=== PATIENT | female | born 1985 | race African-American/Black ===

== ENCOUNTER 2016-12-12 11:33 | Emergency (ER) | payer OTHER ==
[2016-12-12 11:42] VITALS: BP 134/77; PULSE 62; TEMP 97.7; BMI 22.6
[2016-12-12] MEDS ORDERED: DIPHTH,PERTUSS(ACELL),TET 0.5 ML DISP.SYRIN IM ONE (12:05)
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
[2016-12-12 14:49] LABS: HIV 1 & 2 AB NEGATIVE; HIV 1 AGp24 NEGATIVE
== END 2016-12-12 12:51 | disposition home or self-care (01) ==
LOC: JERFT 11:33
PROC: 3E0234Z Introduction of Serum, Toxoid and Vaccine into Muscle, Percutaneous Approach (ICD-10-PCS; principal; 2016-12-12)
DX: S61.254A Open bite of right ring finger without damage to nail, initial encounter (principal); W50.3XXA Accidental bite by another person, initial encounter; Y93.F9 Activity, other caregiving; Y92.098 Other place in other non-institutional residence as the place of occurrence of the external cause; Y99.0 Civilian activity done for income or pay
CPT/HCPCS: 36415; 86707; 87350; 87389; 90471; 90715; 99281-25

== ENCOUNTER 2017-09-15 14:22 | Emergency (ER) | payer OTHER ==
[2017-09-15 14:32] VITALS: BP 132/81; PULSE 76; TEMP 99; BMI 25.8
--- NOTE | 2017-09-15 14:38 | PDOC ---
Rapid Medical Evaluation Chief Complaint: Vaginal Bleeding Time Seen by Provider: 09/15/17 14:30 Medical Evaluation: Allergies Allergy/AdvReac Type Severity Reaction Status Date / Time No Known Allergies Allergy Verified 12/12/16 11:42 09/15/17 14:31 Pt here with c/o: vag bleed and abd pain, pt went to [facility] today and was told fetus was 6 weeks although she states is 12 weeks by LMP. Pt unable to get an appt with [facility]. Here for 2nd opinion Pt on exam: vss pt ordered for: none pt to proceed to the ED Discharge Disposition - Diagnosis Vaginal bleeding in - Referrals Referrals: Sadiq Rios MD [Primary Care Provider] - - Patient Instructions - Post Discharge Activity
--- NOTE | 2017-09-15 16:28 | PDOC ---
History of Present Illness - General Chief Complaint: Vaginal Bleeding Stated Complaint: 12wks , abd pain Time Seen by Provider: 09/15/17 14:30 - History of Present Illness Initial Comments: 09/15/17 16:25 Ms. Wei is a 32 yo female with pmh of anxiety and depression who presents for evaluation after noticing some vaginal spotting and clots in the toilet this morning. She reports that she is 12 weeks by LMP and she presented to [facility] for evaluation this AM. At [facility] she had a transvaginal US which confirmed IUP consistent with 6 weeks without evidence of IUP. She is here to get a second opinion. Ms. Wei also reports having 4 elective abortions in the past. The patient denies chest pain, shortness of breath, headache and dizziness. Denies fever, chills, nausea, vomit, diarrhea and constipation. Denies dysuria, frequency, urgency and hematuria. Allergies: NKDA 09/15/17 20:57 Past History - Past Medical History Allergies/Adverse Reactions: Allergies Allergy/AdvReac Type Severity Reaction Status Date / Time No Known Allergies Allergy Verified 09/15/17 14:31 Home Medications: Ambulatory Orders Clotrimazole [Gyne-Lotrimin -] 1 applic VG DAILY 7 Days #1 tube 09/15/17 COPD: No Psychiatric Problems: Yes (anxiety, depression) - Reproductive History Cervical CA: No Dysfunctional Uterine Bleeding: No Ectopic : No Endometrial CA: No Polycystic Ovaries: No Tubal Ligation: No - Immunization History Immunization Up to Date: Yes - Suicide/Smoking/Psychosocial Hx Smoking Status: No Smoking History: Never smoked Number of Cigarettes Smoked Daily: 3 Information on smoking cessation initiated: No Hx Alcohol Use: No Drug/Substance Use Hx: No Substance Use Type: None Review of Systems - Review of Systems Comments:: 09/15/17 16:58 GENERAL/CONSTITUTIONAL: No fever or chills. No weakness. HEAD, EYES, EARS, NOSE AND THROAT: No change in vision. No ear pain or discharge. No sore throat. CARDIOVASCULAR: No chest pain or shortness of breath RESPIRATORY: No cough, wheezing, or hemoptysis. GASTROINTESTINAL: No nausea, vomiting, diarrhea or constipation. GENITOURINARY: +Vaginal spotting and clots noted in toilet today as described above. MUSCULOSKELETAL: No joint or muscle swelling or pain. No neck or back pain. SKIN: No rash NEUROLOGIC: No headache, vertigo, loss of consciousness, or change in strength/ sensation. ENDOCRINE: No increased thirst. No abnormal weight change HEMATOLOGIC/LYMPHATIC: No anemia, easy bleeding, or history of blood clots. ALLERGIC/IMMUNOLOGIC: No hives or skin allergy. *Physical Exam - Vital Signs Last Vital Signs Temp Pulse Resp BP Pulse Ox 99 F 76 18 132/81 100 09/15/17 14:29 09/15/17 14:29 09/15/17 14:29 09/15/17 14:29 09/15/17 14:29 - Physical Exam Comments: 09/15/17 16:59 GENERAL: Awake, alert, and fully oriented, in no acute distress HEAD: No signs of trauma, normocephalic, atraumatic EYES: PERRLA, EOMI, sclera anicteric, conjunctiva clear ENT: Auricles normal inspection, hearing grossly normal, nares patent, oropharynx clear without exudates. Moist mucosa NECK: Normal ROM, supple, no lymphadenopathy, JVD, or masses LUNGS: No distress, speaks full sentences, clear to auscultation bilaterally HEART: Regular rate and rhythm, normal S1 and S2, no murmurs, rubs or gallops, peripheral pulses normal and equal bilaterally. ABDOMEN: Soft, nontender, normoactive bowel sounds. No guarding, no rebound. No masses EXTREMITIES: Normal inspection, Normal range of motion, no edema. No clubbing or cyanosis. NEUROLOGICAL: Cranial nerves II through XII grossly intact. Normal speech, normal gait, no focal sensorimotor deficits SKIN: Warm, Dry, normal turgor, no rashes or lesions noted. : +White, cottage cheese like edudate noted. Cervical OS closed, no CMT, no adnexal tenderness. Medical Decision Making - Medical Decision Making 09/15/17 17:53 Patient presents from [facility] with paperwork citing US results as described. Will perform examination / order labs for confirmation. Beta HCG consistent with at most 5-6 week . 09/15/17 20:56 US consistent with 7w1 day , FHR not observable. Instructed patient to follow-up in two days for repeat Beta-HCG analysis. Patient verbalized understanding. *DC/Admit/Observation/Transfer Diagnosis at time of Disposition: Vaginal bleeding in - Discharge Dispostion Disposition: HOME - Prescriptions Prescriptions: Clotrimazole [Gyne-Lotrimin -] 1 applic VG DAILY 7 Days #1 tube - Referrals Referrals: Sadiq Rios MD [Primary Care Provider] - - Patient Instructions Printed Discharge Instructions: DI for Vaginal Bleeding During Additional Instructions: Please return immediately if any increase in vaginal bleeding, fever, chills, or other concerning symptoms. Otherwise follow-up on Tuesday as discussed for re-evaluation. - Post Discharge Activity
--- NOTE | 2017-09-15 18:40 | PDOC ---
Attending Attestation - Resident Resident Name: Manny Macario - ED Attending Attestation I have performed the following: I have examined & evaluated the patient, The case was reviewed & discussed with the resident, I agree w/resident's findings & plan, Exceptions are as noted - HPI HPI: 09/15/17 18:31 32 F , 6 weeks , with pmh of anxiety and depression presenting to ER with vaginal spotting. Denies abdominal pain. Pt was at [facility] for evaluation this AM and had TVUS. She was told that she had an IUP but no heart beat was visualized. Pt presents to this ER for second opinion. - Physicial Exam PE: 09/15/17 18:40 "GENERAL: Awake, alert, and fully oriented, in no acute distress HEAD: No signs of trauma EYES: PERRLA, EOMI, sclera anicteric, conjunctiva clear ENT: Auricles normal inspection, hearing grossly normal, nares patent, oropharynx clear without exudates. Moist mucosa NECK: Nontender, no stepoffs, Normal ROM, supple, no lymphadenopathy, JVD, or masses LUNGS: Breath sounds equal, clear to auscultation bilaterally. No wheezes, and no crackles HEART: Regular rate and rhythm, normal S1 and S2, no murmurs, rubs or gallops ABDOMEN: Soft, nontender, normoactive bowel sounds. No guarding, no rebound. No masses : scant blood in vault, os closed, no CMT, no adnexal masses or tenderness EXTREMITIES: Normal range of motion, no edema. No clubbing or cyanosis. No cords, erythema, or tenderness NEUROLOGICAL: Cranial nerves II through XII intact. 5/5 strength and sensation in all extremities, Normal speech, normal gait SKIN: Warm, Dry, normal turgor, no rashes or lesions noted. " - Medical Decision Making 09/15/17 18:41 32 F, 6 weeks , with TVUS at OSH showing IUP but no heartbeat, likely due to only being 6 weeks . Pt here for second opinion. Pt with scant blood in vault, otherwise normal exam. - TVUS - Labs, T&S, UA - OB f/u 09/15/17 21:18 TVUS shows IUP with no heartbeat. Possible spontaneous ab. Rhogam administered for Rh- status. Pt instructed to f/u with OB in 2 days for repeat US and bloodwork.
[2017-09-15] MEDS ORDERED: RHO(D) IMMUNE GLOBULIN 1,500 UNIT DISP.SYRIN IM ONE (18:53)
[2017-09-15] MEDS ORDERED: FLUCONAZOLE 100 MG TABLET (UD) PO ONE (18:53)
[2017-09-15] MEDS ORDERED: CLOTRIMAZOLE 1% VAGINAL CREAM WITH APPLICATOR 45 GM TUBE VG SCH (19:15)
== END 2017-09-15 21:18 | disposition home or self-care (01) ==
LOC: JER 14:22
DX: O26.891 Other specified pregnancy related conditions, first trimester (principal); O02.1 Missed abortion; Z3A.01 Less than 8 weeks gestation of pregnancy
CPT/HCPCS: 36415; 76817-TC; 84702; 86850; 86900; 86901; 86999; 99285-25

== ENCOUNTER 2017-09-17 16:28 | Emergency (ER) | payer OTHER ==
[2017-09-17 16:39] VITALS: BMI 25.8
--- NOTE | 2017-09-17 16:53 | PDOC ---
Attending Attestation - Resident Resident Name: BaldomerosindyshadeYuriManny - ED Attending Attestation I have performed the following: I have examined & evaluated the patient, The case was reviewed & discussed with the resident, I agree w/resident's findings & plan, Exceptions are as noted - HPI HPI: 09/17/17 17:50 32y F hx at approximately 6 weeks presents with vaginal spotting, was seen at [facility] 2 days ago with US showing no FHR, came here for 2nd opinion with US showing the same, Beta 2 days ago was 8800.Pt retursn for reevaluation as she was told to come back in 2 days to repeat US and beta, t&s was rh neg, and pt was given rhogam. pt has no abd pain, but continued brownish spotting but wanted to fu to see the status of her . 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 urbano for DC return precautions were discussed in cluding any pain or worsening bleeding dx missed ab I discussed the physical exam findings, ancillary test results and final diagnoses with the patient. I answered all of the patient's questions. The patient was satisfied with the care received and felt comfortable with the discharge plan and treatment plan. The patient will call their primary care physician within 24 hours to arrange follow-up and will return to the Emergency Department with any new, persistent or worsening symptoms.
--- NOTE | 2017-09-17 16:59 | PDOC ---
History of Present Illness - History of Present Illness Initial Comments: 09/17/17 17:00 Ms. Wei is a 32 yo female with pmh of anxiety and depression who represents as instructed for repeat Beta-HCG and Transvaginal US after presenting 2 days ago for vaginal spotting after evaluation at [facility] where she was told she had a B-HCG and Transvaginal US consistent w/ 6 weeks and unable to visualize heart tones. Workup here Tuesday was confirmatory of [facility] results and rho-traci administered. Patient has no new complaints but would like to know what is happening with her . The patient denies chest pain, shortness of breath, headache and dizziness. Denies fever, chills, nausea, vomit, diarrhea and constipation. Denies dysuria, frequency, urgency and hematuria. Allergies: NKDA <Manny Macario - Last Filed: 09/17/17 19:03> <Brijesh Barros - Last Filed: 09/17/17 20:26> - General Chief Complaint: Vaginal Bleeding Stated Complaint: ER REVIST Time Seen by Provider: 09/17/17 16:46 Past History - Past Medical History COPD: No Psychiatric Problems: Yes (anxiety, depression) - Reproductive History (#): 6 Para: 1 Cervical CA: No Dysfunctional Uterine Bleeding: No Ectopic : No Endometrial CA: No Polycystic Ovaries: No Therapeutic (s) & number: Yes (5) Tubal Ligation: No Spontaneous : 0 - Immunization History Immunization Up to Date: Yes - Suicide/Smoking/Psychosocial Hx Smoking Status: No Smoking History: Never smoked Number of Cigarettes Smoked Daily: 3 Hx Alcohol Use: Yes (social) Drug/Substance Use Hx: No Substance Use Type: None <Manny Macario - Last Filed: 09/17/17 19:03> <Brijesh Barros - Last Filed: 09/17/17 20:26> - Past Medical History Allergies/Adverse Reactions: Allergies Allergy/AdvReac Type Severity Reaction Status Date / Time No Known Allergies Allergy Verified 09/17/17 16:34 Home Medications: Ambulatory Orders Vit Calc,Iron,Folic [ Vitamins] 1 tab PO DAILY 09/17/17 Review of Systems - Review of Systems Comments:: 09/17/17 17:07 GENERAL/CONSTITUTIONAL: No fever or chills. No weakness. HEAD, EYES, EARS, NOSE AND THROAT: No change in vision. No ear pain or discharge. No sore throat. CARDIOVASCULAR: No chest pain or shortness of breath RESPIRATORY: No cough, wheezing, or hemoptysis. GASTROINTESTINAL: No nausea, vomiting, diarrhea or constipation. GENITOURINARY: No dysuria, frequency, or change in urination. MUSCULOSKELETAL: No joint or muscle swelling or pain. No neck or back pain. SKIN: No rash NEUROLOGIC: No headache, vertigo, loss of consciousness, or change in strength/ sensation. ENDOCRINE: No increased thirst. No abnormal weight change HEMATOLOGIC/LYMPHATIC: No anemia, easy bleeding, or history of blood clots. ALLERGIC/IMMUNOLOGIC: No hives or skin allergy. : Continued vaginal spotting as per last exam - patient says it has now taken on a brownish tinge <Manny Macario - Last Filed: 09/17/17 19:03> *Physical Exam - Vital Signs Last Vital Signs Temp Pulse Resp BP Pulse Ox 98.3 F 83 20 123/73 100 09/17/17 16:30 09/17/17 16:30 09/17/17 16:30 09/17/17 16:30 09/17/17 16:30 - Physical Exam Comments: 09/17/17 17:10 GENERAL: Awake, alert, and fully oriented, in no acute distress HEAD: No signs of trauma, normocephalic, atraumatic EYES: PERRLA, EOMI, sclera anicteric, conjunctiva clear ENT: Auricles normal inspection, hearing grossly normal, nares patent, oropharynx clear without exudates. Moist mucosa NECK: Normal ROM, supple, no lymphadenopathy, JVD, or masses LUNGS: No distress, speaks full sentences, clear to auscultation bilaterally HEART: Regular rate and rhythm, normal S1 and S2, no murmurs, rubs or gallops, peripheral pulses normal and equal bilaterally. ABDOMEN: Soft, nontender, normoactive bowel sounds. No guarding, no rebound. No masses EXTREMITIES: Normal inspection, Normal range of motion, no edema. No clubbing or cyanosis. NEUROLOGICAL: Cranial nerves II through XII grossly intact. Normal speech, normal gait, no focal sensorimotor deficits SKIN: Warm, Dry, normal turgor, no rashes or lesions noted. : Os closed, scant blood noted, no CMT, no adnexal tenderness <Manny Macario - Last Filed: 09/17/17 19:03> - Vital Signs Last Vital Signs Temp Pulse Resp BP Pulse Ox 98.3 F 83 20 123/73 100 09/17/17 16:30 09/17/17 16:30 09/17/17 16:30 09/17/17 16:30 09/17/17 16:30 <Brijesh Barros - Last Filed: 09/17/17 20:26> ED Treatment Course - RADIOLOGY Radiology Studies Ordered: Category Date Time Status TRANSVAGINAL US PREG [US] Stat Ultrasound 09/17/17 16:58 Ordered <Manny Macario - Last Filed: 09/17/17 19:03> - ADDITIONAL ORDERS Additional order review: Laboratory Results 09/17/17 16:55 Beta HCG, Quant 7313.7 <Brijesh Barros - Last Filed: 09/17/17 20:26> Medical Decision Making - Medical Decision Making 09/17/17 17:11 Patient presents per instruction for further evaluation. 09/17/17 18:48 Beta downtrending from previous visit. Os remains closed. Patient had missed . Will provide [employer] follow-up with instructions to return as needed for further care. 09/17/17 18:59 Further care taken over by Dr. Barros. <Manny Macario - Last Filed: 09/17/17 19:03> *DC/Admit/Observation/Transfer <Manny Macario - Last Filed: 09/17/17 19:03> - Discharge Dispostion Admit: No <Brijesh Barros - Last Filed: 09/17/17 20:26> Diagnosis at time of Disposition: Missed - Discharge Dispostion Disposition: HOME Condition at time of disposition: Stable - Referrals Referrals: Sadiq Rios MD [Primary Care Provider] - Yady Pena MD [Staff Physician] - - Patient Instructions Printed Discharge Instructions: DI for Miscarriage Additional Instructions: Please follow-up with [employer] in 1-2 days as discussed for reevaluation and procedure. If you cannot contact your obgyn, you can follow up with dr. Pena on Tuesday. Return to ER if any incresaed vaginal bleeding, abdominal pain, fever, or any other concerning symptoms. 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 Print Language: ITALIAN - Post Discharge Activity
[2017-09-17 20:34] VITALS: BP 120/70; PULSE 80; TEMP 98.1
== END 2017-09-17 20:33 | disposition home or self-care (01) ==
LOC: JER 16:28
DX: O26.891 Other specified pregnancy related conditions, first trimester (principal); O02.1 Missed abortion; F41.8 Other specified anxiety disorders
CPT/HCPCS: 36415; 76817-TC; 84702; 99282-25

== ENCOUNTER 2019-01-29 23:29 | Emergency (ER) | payer SELFPAY ==
[2019-01-29 23:33] VITALS: BP 140/85; PULSE 67; TEMP 98.1
--- NOTE | 2019-01-30 00:48 | PDOC ---
History of Present Illness - General Chief Complaint: Allergic Reaction Stated Complaint: alergic reaction Time Seen by Provider: 01/30/19 00:17 History Source: Patient Exam Limitations: No Limitations Past History - Past Medical History Allergies/Adverse Reactions: Allergies Allergy/AdvReac Type Severity Reaction Status Date / Time No Known Allergies Allergy Verified 01/29/19 23:32 Home Medications: Ambulatory Orders Vit Calc,Iron,Folic [ Vitamins] 1 tab PO DAILY 09/17/17 Olopatadine HCl 1 drop OU BID #1 bottle 01/30/19 COPD: No Psychiatric Problems: Yes (anxiety, depression) - Reproductive History (#): 6 Para: 1 Cervical CA: No Dysfunctional Uterine Bleeding: No Ectopic : No Endometrial CA: No Polycystic Ovaries: No Therapeutic (s) & number: Yes (5) Tubal Ligation: No Spontaneous : 0 - Immunization History Immunization Up to Date: Yes - Suicide/Smoking/Psychosocial Hx Smoking Status: No Smoking History: Never smoked Number of Cigarettes Smoked Daily: 3 Hx Alcohol Use: No Drug/Substance Use Hx: No Substance Use Type: None *Physical Exam - Vital Signs Last Vital Signs Temp Pulse Resp BP Pulse Ox 98.1 F 67 18 140/85 100 01/29/19 23:31 01/29/19 23:31 01/29/19 23:31 01/29/19 23:31 01/29/19 23:31 - Physical Exam General Appearance: No: Apparent Distress HEENT: positive: Pharynx Normal, Other (mild injection B/L eyes, no puffing of eyes noted, no discharge from eyes, no angioedema). negative: Nasal Congestion , Rhinorrhea Respiratory/Chest: positive: Lungs Clear, Normal Breath Sounds. negative: Respiratory Distress Cardiovascular: positive: Regular Rhythm, Regular Rate, S1, S2. negative: Murmur Integumentary: positive: Rash (raised red bumps along anterior neck; rash not noted anywhere else on body). negative: Hives, Petechiae, Swelling, Ecchymosis Neurologic: positive: Alert, Normal Mood/Affect Medical Decision Making - Medical Decision Making 33 y/o F with no sig pmh presents with rash along neck and generalized pruritus of body along with puffy eyes, tearing from eyes and itchy eyes from 3 days ago. Mentions sxs started after eating oysters and clams for the first time. Denies having SOB, chest tightness, cp, swelling of lips. Had tried Bebe-D and Benadryl; Benadryl helped a little. Did not take any Benadryl today. Denies recent travel, other people with similar rash, use of new meds/products. Possible allergic reaction No evidence of anaphylaxis, scabies or bedbug rash 01/30/19 00:44 *DC/Admit/Observation/Transfer Diagnosis at time of Disposition: Allergic reaction Qualifiers: Encounter type: initial encounter Qualified Code(s): T78.40XA - Allergy, unspecified, initial encounter - Discharge Dispostion Disposition: HOME Condition at time of disposition: Stable Decision to Admit order: No - Prescriptions Prescriptions: Olopatadine HCl 1 drop OU BID #1 bottle - Referrals - Patient Instructions Printed Discharge Instructions: DI for General Allergic Reactions Additional Instructions: Thank you for choosing [facility]. It was a pleasure taking care of you. Likely your symptoms are from allergic reaction Take Benadryl or Claritin as needed for itching Use cool compresses and eye drops for the eye You can also try 1% topical hydrocortisone along the neck to help with itching ( avoid applying to face) Follow-up with your doctor in 1-2 days Return to the Emergency Department if your symptoms worsen or persist or other concerning symptoms. - Post Discharge Activity
== END 2019-01-30 01:56 | disposition home or self-care (01) ==
LOC: JER 23:29
DX: T78.40XA Allergy, unspecified, initial encounter (principal)
CPT/HCPCS: 99281-25